=== PATIENT | male | born 1955 | race Caucasian/White ===

== ENCOUNTER 2017-05-10 14:18 | Inpatient (IN) | payer SELFPAY ==
[~2017-05-10] VITALS: Ht 175.3 cm; Wt 48.9 kg
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
--- NOTE | ~2017-05-10 | ECHO ---
Transthoracic Echocardiography Report (TTE) Demographics Patient Name BRUNA HANKINS Date of Study 05/11/2017 Patient Number [id number] Visit Number [id number] Date of 1955 Room Number G6216 Gender Male Number Age 61 year(s) Referring Paper Coating Machine Operator Margarita RVT, RDCS Physician Susy Physician Interpreting Anny Carroll MD Manager Of Merchandising Physician Supervising Ordering Anny Carroll MD, MD/MLP Physician Nurse Stress Furniture Mover Conclusions Contractility Score Summary Normal Left Ventricular contractility was noted. Summary The estimated left ventricular ejection fraction is 60-65%. Diastolic assessment reveals Grade I diastolic dysfunction. Mildly reduced right ventricular function. Procedure Type of Study TTE procedure:2D Echocardiogram, M-Mode, Doppler , Color Doppler. Procedure Date Date: 05/11/2017 Start: 10:40 AM Study Location: Inpatient Portable Technical Quality: Adequate visualization Indications:Syncope. Appropriate Use Criteria: 9 Patient Status: Routine HR: 81 bpm BP: 164/98 mmHg M-Mode/2D Measurements LV Diastolic Dimension: 3.84 cm LV Systolic Dimension: 2.31 cm LV Septum Diastolic: 0.67 cm LV PW Diastolic: 0.77 cm AO Root Dimension: 2.7 cm Cardiac Output: 5.24 l/min AV Cusp Separation: 1.6 cm RV Diastolic Dimension: 2.41 cm LA volume: 11 ml LVOT: 2.1 cm RV Base: 2.28 cm LVOT VTI: 18.7 cm RV Mid: 2.47 cm LV Stroke volume: 64.74 ml TAPSE: 1.32 cm TDI-S': 13.6 cm/s Doppler Measurements AV Peak Velocity: 1.21 m/s MV Peak E-Wave: 0.69 m/s AV Peak Gradient: 5.86 mmHg MV Peak A-Wave: 0.93 m/s AV Mean Gradient: 4 mmHg MV E/A Ratio: 0.74 LVOT Peak Velocity: 0.92 m/s MV P1/2t: 65 msec TR Gradient:7.95 mmHg PV Peak Velocity: 0.94 m/s Estimated RAP:3 mmHg PV Peak Gradient: 3.51 mmHg Estimated RVSP: 11 mmHg Estimated PASP: 10.95 mmHg E' Septal Velocity: 0.09 m/s A' Septal Velocity: 0.12 m/s E' Lateral Velocity: 0.11 m/s A' Lateral Velocity: 0.13 m/s Findings Left Ventricle Diastolic assessment reveals Grade I diastolic dysfunction. Right Ventricle Mildly reduced right ventricular function. Mild to moderately dilated right ventricle. Left Atrium Normal left atrial size. Right Atrium The right atrium is mild to moderately dilated. Mitral Valve Trivial mitral regurgitation by color Doppler. Aortic Valve Normal aortic valve structure and function. Tricuspid Valve Trivial tricuspid regurgitation by color Doppler. Pulmonic Valve Normal pulmonic valve structure and function. Pericardial Effusion No evidence of pericardial effusion. Pleural Effusion Pleural effusion present. Contractility Score LV regional wall motion:(0-Non visualized 1-Normal 2-Hypokinesis 3-Akinesis 4-Dyskinesis 5-Aneurysm) Signature dtt: Glen Mccormick (cardio) dtd: 05/11/17 1040 Physician Self Edit
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
[2017-05-10 14:59] LABS: BASOPHIL # 0.1 K/uL (0.0-0.2); BASOPHIL % 0.7 %; EOSINOPHIL # 0.1 K/uL (0.0-0.5); HEMATOCRIT 46.4 % (37.0-53.0); HEMOGLOBIN 16.1 g/dL (11.0-16.0); IMMATURE GRANULOCYTE % 0.1 %; LYMPHOCYTE # 1.1 K/uL (0.8-4.0); LYMPHOCYTE % 14.4 %; MCH 34.7 pg (27.0-34.0); MCHC 34.7 gm/dL (32.0-36.5); MONOCYTE # 0.6 K/uL (0.0-1.0); MONOCYTE % 7.7 %; MPV 9.5 fl (9.4-12.4); NEUTROPHIL # (ANC) 5.5 K/uL (1.4-9.0); NEUTROPHIL % 76.1 %; NRBC % 0 /100WBC (0-0.00); PLATELET COUNT 319 K/uL (150-450); RBC 4.64 M/uL (3.50-5.50); RDW-CV 11.5 % (11.9-14.6); WBC 7.3 K/uL (4.0-11.0)
[2017-05-10 15:09] LABS: INR - (THERAPEUTIC) 1.03 (0.92-1.07); PROTIME 10.8 SECONDS (9.8-11.4)
[2017-05-10 15:20] LABS: ALBUMIN 3.7 gm/dL (3.5-5.0); ALK PHOS 54 IU/L (33-138); ALT 33 IU/L (12-78); ANION GAP 10.8 (10.0-19.0); AST 26 IU/L (10-40); BLOOD UREA NITROGEN 8 mg/dL (6-24); CALCIUM 8.3 mg/dL (8.5-10.5); CHLORIDE 109 mMol/L (96-110); CO2 25 mMol/L (22-32); CPK 51 IU/L (35-332); CREATININE 0.7 mg/dL (0.6-1.3); POTASSIUM 3.8 mMol/L (3.7-5.1); SODIUM 141 mMol/L (135-145); TOTAL BILIRUBIN 0.6 mg/dL (0.0-1.5); TOTAL PROTEIN 6.8 g/dL (6.0-8.4)
[2017-05-11 05:10] LABS: BASOPHIL # 0.1 K/uL (0.0-0.2); EOSINOPHIL # 0.2 K/uL (0.0-0.5); EOSINOPHIL % 3.2 %; HEMATOCRIT 43.3 % (37.0-53.0); IMMATURE GRANULOCYTE % 0.2 %; LYMPHOCYTE # 1.3 K/uL (0.8-4.0); LYMPHOCYTE % 21.8 %; MCH 34.6 pg (27.0-34.0); MCHC 34.6 gm/dL (32.0-36.5); MONOCYTE # 0.7 K/uL (0.0-1.0); MONOCYTE % 11.9 %; MPV 9.7 fl (9.4-12.4); NEUTROPHIL # (ANC) 3.6 K/uL (1.4-9.0); NEUTROPHIL % 61.9 %; NRBC % 0 /100WBC (0-0.00); PLATELET COUNT 296 K/uL (150-450); RBC 4.33 M/uL (3.50-5.50); RDW-CV 11.4 % (11.9-14.6); WBC 5.9 K/uL (4.0-11.0)
[2017-05-11 05:25] LABS: ALBUMIN 3.2 gm/dL (3.5-5.0); ANION GAP 9.1 (10.0-19.0); BLOOD UREA NITROGEN 10 mg/dL (6-24); CALCIUM 8.3 mg/dL (8.5-10.5); CHLORIDE 110 mMol/L (96-110); CO2 26 mMol/L (22-32); CREATININE 0.6 mg/dL (0.6-1.3); PHOSPHORUS 3.1 mg/dL (2.5-4.9); POTASSIUM 4.1 mMol/L (3.7-5.1); SODIUM 141 mMol/L (135-145)
[2017-05-15] MEDS ORDERED: NICOTINE PATCH1 EAC1 TRANS (10:16)
[2017-05-15] MEDS ORDERED: TYLENOL325 MG PO (10:17)
== END 2017-05-15 10:50 | disposition disaster alternative care site (69) | DRG 309 ==
LOC: GACC 14:18 → GICU 16:32
PROVIDERS: Emergency Medicine; Nurse Practitioner Acute Care; ADMIT Surgery
DX: I45.2 Bifascicular block (principal); E44.0 Moderate protein-calorie malnutrition; R41.2 Retrograde amnesia; J44.9 Chronic obstructive pulmonary disease, unspecified; F17.210 Nicotine dependence, cigarettes, uncomplicated; Z72.89 Other problems related to lifestyle; E87.6 Hypokalemia; R55 Syncope and collapse; V47.5XXA Car driver injured in collision with fixed or stationary object in traffic accident, initial encounter; Y92.410 Unspecified street and highway as the place of occurrence of the external cause; Y93.9 Activity, unspecified
CPT/HCPCS: G0378